=== PATIENT | female | born 1970 | race Caucasian/White ===

== ENCOUNTER 2017-09-29 19:58 | Emergency (ER) | payer SELFPAY ==
[~2017-09-29] VITALS: Ht 160 cm; Wt 63.8 kg
[~2017-09-29 19:58] MED LIST: MELO-210 PO
[2017-09-29 20:11] VITALS: Ht 160 cm; Wt 63.8 kg
== END 2017-09-29 23:25 | disposition left against medical advice (07) ==
LOC: E/R 19:58
DX: Z53.21 Procedure and treatment not carried out due to patient leaving prior to being seen by health care provider (principal)